=== PATIENT | female | born 1930 | race Hispanic/Latino ===

== ENCOUNTER 2018-07-22 09:45 | Outpatient (CLI) | payer MEDICARE, OTHER | END 2018-07-22 09:46 | disposition home or self-care (01) | LOC: RAD 09:45 ==

== ENCOUNTER 2018-07-26 13:12 | Outpatient (CLI) | payer MEDICARE, OTHER | END 2018-07-26 13:13 | disposition home or self-care (01) | LOC: RAD 13:12 ==

== ENCOUNTER 2018-08-04 11:27 | Emergency (ER) | payer MEDICARE, OTHER ==
[2018-08-04 11:29] VITALS: BMI 27.9
--- NOTE | 2018-08-04 12:03 | ED PDOC ---
Arrival/HPI - General Chief Complaint: High Blood Pressure Time Seen by Provider: 08/04/18 11:35 Historian: Patient - History of Present Illness Narrative History of Present Illness (Text): 08/04/18 12:02 88 year old female, whose past medical history includes hypertension, 1 stent, A-fib (on Xarelto) COPD, GERD, and chronic back pain, who presents to the emergency department complaining of high blood pressure since earlier this morning. Patient states she was at physical therapy this morning and didn't feel like herself, had a slight headache, so they evaluated her blood pressure and found it elevated. Patient states she is on 150mg of avapro twice a day and 25mg of hydralazine 3 times a day. She has been seen by both her cattle killer and PMD for her high blood pressure and they were considering increasing her dosage of her avapro. She denies chest pain, shortness of breath, cough, abdominal pain, vomiting, nasuea, diarrhea, neck pain, or any other complaint. PMD: Dr. oTmlinson Office Services Clerk: Dr. Saul Time/Duration: Prior to Arrival Symptom Onset: Gradual Symptom Course: Unchanged Activities at Onset: Light Context: Other (physical therapy ) Past Medical History - Provider Review Nursing Documentation Reviewed: Yes - Infectious Disease Hx of Infectious Diseases: None - Cardiac Hx Hypertension: Yes Hx Pacemaker: No Other/Comment: Stent x 1. "leaky valve" - Pulmonary Hx Respiratory Disorders: Yes Hx Chronic Obstructive Pulmonary Disease (COPD): Yes Hx Emphysema: Yes - Neurological Hx Paralysis: No - HEENT Hx HEENT Disorder: No - Renal Hx Renal Disorder: No - Endocrine/Metabolic Hx Endocrine Disorders: No - Hematological/Oncological Hx Blood Transfusions: Yes (40 YRS AGO) Hx Blood Transfusion Reaction: No - Integumentary Hx Dermatological Disorder: No - Musculoskeletal/Rheumatological Hx Musculoskeletal Disorders: No - Gastrointestinal Hx Gastrointestinal Disorders: Yes Hx Gastroesophageal Reflux: Yes - Genitourinary/Gynecological Hx Genitourinary Disorders: No - Psychiatric Hx Emotional Abuse: No Hx Physical Abuse: No Hx Substance Use: No - Past Surgical History Past Surgical History: No Previous - Surgical History Hx Cataract Extraction: Yes Hx Cardiac Catheterization: Yes (x 1 stent) - Anesthesia Hx Anesthesia Reactions: No Hx Malignant Hyperthermia: No - Suicidal Assessment Feels Threatened In Home Enviroment: No Family/Social History - Physician Review Nursing Documentation Reviewed: Yes Family/Social History: No Known Family HX Smoking Status: Former Smoker Hx Alcohol Use: No Hx Substance Use: No Allergies/Home Meds Allergies/Adverse Reactions: Allergies No Known Allergies Allergy (Verified 08/04/18 11:29) Home Medications: Home Meds Medication Instructions Recorded Confirmed Aspirin [Aspirin Chewable] 1 tab PO DAILY 08/04/18 08/04/18 Escitalopram [Lexapro] 1 tab PO DAILY 08/04/18 08/04/18 Irbesartan [Avapro] 1 tab PO DAILY 08/04/18 08/04/18 Magnesium Oxide [Mag-Ox] 1 tab PO DAILY 08/04/18 08/04/18 [place]-3 Fatty Acids/Fish Oil [Fish 1 cap PO DAILY 08/04/18 08/04/18 Oil 1,000 mg Capsule] Pantoprazole Sodium [Protonix] 1 tab PO DAILY 08/04/18 08/04/18 Potassium Chloride [Klor-Con] 1 tab PO DAILY 08/04/18 08/04/18 Prednisone [Redd] 1 tab PO DAILY 08/04/18 08/04/18 Rivaroxaban [Xarelto] 1 tab PO DAILY 08/04/18 08/04/18 hydrALAZINE [Apresoline] 1 tab PO DAILY 08/04/18 08/04/18 hydroCHLOROthiazide [Hydrodiuril] 1 tab PO DAILY 08/04/18 08/04/18 Review of Systems - Physician Review All systems were reviewed & negative as marked: Yes - Review of Systems Constitutional: absent: Fevers Respiratory: absent: SOB, Cough Cardiovascular: Other (hypertensive). absent: Chest Pain, Palpitations, Edema, Calf Pain, ONOFRE, Orthopnea, Syncope Gastrointestinal: absent: Abdominal Pain, Constipation, Diarrhea, Nausea, Vomiting Genitourinary Female: absent: Dysuria, Frequency Musculoskeletal: absent: Neck Pain Neurological: Headache. absent: Dizziness Physical Exam Vital Signs Reviewed: Yes Vital Signs Temp Pulse Resp BP Pulse Ox 08/04/18 11:34 209/93 H 08/04/18 11:31 97.7 F 94 H 18 205/100 H 95 Temperature: Afebrile Blood Pressure: Hypertensive Pulse: Irregular Respiratory Rate: Normal Appearance: Positive for: Well-Appearing, Non-Toxic, Comfortable Pain Distress: None Mental Status: Positive for: Alert and Oriented X 3 - Systems Exam Head: Present: Atraumatic, Normocephalic Pupils: Present: PERRL Extroacular Muscles: Present: EOMI Conjunctiva: Present: Normal Mouth: Present: Moist Mucous Membranes Neck: Present: Normal Range of Motion Respiratory/Chest: Present: Clear to Auscultation, Good Air Exchange. No: Respiratory Distress, Accessory Muscle Use Cardiovascular: Present: Irregular Rhythm (irregularly irregular). No: Murmurs Abdomen: No: Tenderness, Distention, Peritoneal Signs Back: Present: Normal Inspection Upper Extremity: Present: Normal Inspection. No: Cyanosis, Edema Lower Extremity: Present: Normal Inspection. No: Edema Neurological: Present: GCS=15, CN II-XII Intact, Speech Normal Skin: Present: Warm, Dry, Normal Color. No: Rashes Psychiatric: Present: Alert, Oriented x 3, Normal Insight, Normal Concentration Medical Decision Making ED Course and Treatment: 08/04/18 12:02 Impression: 88 year old female who presents to the emergency department for evaluation of high blood pressure. Plan: -- EKG -- Labs -- Cozaar -- Tylenol -- Reassess and disposition Prior Visits: Notes and results from previous visits were reviewed. Progress Notes: EKG shows afib at 80bpm with no acute st changes 08/04/18 11:[address] Tomlinson who recommends doubling patient's avapro and continue her hydralazine at this time. 08/04/18 14:15 Patient's headache is resolved. Patient's had 15 percent reduction in MAP. G iven refill of medication as she only has 1 half pill left and instructed to follow-up with Dr. Tomlinson in 2 days - Lab Interpretations I have reviewed the lab results: Yes - EKG Interpretation Interpreted by ED Physician: Yes Type: 12 lead EKG - Medication Orders Current Medication Orders: Discontinued Medications Acetaminophen (Tylenol 325mg Tab) 650 mg PO STAT STA Stop: 08/04/18 11:48 Losartan Potassium (Cozaar) 25 mg PO STAT STA Stop: 08/04/18 11:50 - Scribe Statement The provider has reviewed the documentation as recorded by the Scribe Faby rajan All medical record entries made by the Scribe were at my direction and personally dictated by me. I have reviewed the chart and agree that the record accurately reflects my personal performance of the history, physical exam, medical decision making, and the department course for this patient. I have also personally directed, reviewed, and agree with the discharge instructions and disposition. Disposition/Present on Arrival - Present on Arrival Any Indicators Present on Arrival: No History of DVT/PE: No History of Uncontrolled Diabetes: No Urinary Catheter: No History of Decub. Ulcer: No History Surgical Site Infection Following: None - Disposition Have Diagnosis and Disposition been Completed?: Yes Diagnosis: Headache, Elevated blood pressure reading Disposition: HOME/ ROUTINE Disposition Time: 14:15 Patient Plan: Discharge Condition: GOOD Discharge Instructions (ExitCare): Headache, Adult, High Blood Pressure (DC), Hypotension (ED), Hypertension (ED) Additional Instructions: Increase avapro to 300mg bid as directed by Dr. Tomlinson. Take hydralazine as prescribed. Follow-up with Dr. Tomlinson within 2 days. Return immediately with any change in symptoms. Prescriptions: Irbesartan [Avapro] 300 mg PO BID #60 tablet Referrals: Charly Miller MD [Family Provider] - Follow up with primary Forms: [employer] ([place])
[2018-08-04 12:37] LABS: BASO # 0.05 K/mm3 (0.0-2.0); BASO % 0.8 % (0.0-3.0); EOS # 0.1 (0.0-0.7); EOS % 1.4 % (1.5-5.0); HEMOGLOBIN 12.8 g/dL (12.0-16.0); LYMPH % 15.8 % (22.0-35.0); MEAN CELL VOLUME 92.6 fl (80.0-105.0); MEAN CORPUSCULAR HEMOGLOBIN 29.7 pg (25.0-35.0); MEAN CORPUSCULAR HGB CONC 32.1 g/dl (31.0-37.0); MONO # 0.7 (0.1-0.6); RBC 4.31 10^6/uL (3.5-6.1); RED CELL DISTRIBUTION WIDTH 15.4 % (11.5-14.5); WHITE BLOOD COUNT 6.5 10^3/uL (4.5-11.0)
[2018-08-04 12:38] LABS: BLOOD UREA NITROGEN 29 mg/dL (7-21); CALCIUM 9.5 mg/dL (8.4-10.5); GFR NON-AFRICAN AMERICAN 59
[2018-08-04 12:50] LABS: TROPONIN I 0.02 ng/mL
--- NOTE | 2018-08-04 12:51 | CARD ---
APPROVED REPORT Date of service: 08/04/2018 EKG Measurement Heart [id number] <Conclusion> Atrial fibrillation Non Specific ST-T Changes. Abnormal ECG
[2018-08-04 14:20] VITALS: BP 176/86; PULSE 73; RESP 18; TEMP 98; O2SAT 94
== END 2018-08-04 14:25 | disposition home or self-care (01) ==
LOC: ED 11:27
DX: I10 Essential (primary) hypertension (principal); R51 Headache; I48.91 Unspecified atrial fibrillation; J44.9 Chronic obstructive pulmonary disease, unspecified; Z87.891 Personal history of nicotine dependence